=== PATIENT | female | born 1945 | race Two or more races ===

== ENCOUNTER 2017-10-19 08:41 | Day surgery (SDC) | payer MEDICARE, BC ==
[2017-10-14 16:06] VITALS: BMI 25.2
[~2017-10-19 08:41] MED LIST: LACTATED RINGERS 1,000 ML IV SCH; LIDOCAINE 1% 20 ML VIAL (10MG/ML) FOR IV START INTRADERMA PRN; MIDAZOLAM 2 MG/2 ML VIAL IV PRN
[2017-10-19 09:44] VITALS: TEMP 97.4
[2017-10-19] MEDS ORDERED: LIDOCAINE 1% 20 ML VIAL (10MG/ML) FOR IV START INTRADERMA ONE (09:54)
[2017-10-19] MEDS ORDERED: LIDOCAINE 1% INJ 10MG/ML (20 ML MDV) ONE (10:15)
[2017-10-19] MEDS ORDERED: PROPOFOL 10 MG/ML 20 ML VIAL IV ONE (10:15)
--- NOTE | 2017-10-19 10:33 | P.PCN ---
Date of Procedure: 10/19/17 Procedure(s) Performed: BRIEF HISTORY: Patient is a 72-year-old [place] white female, scheduled for an elective colonoscopy as a part of screening for colorectal neoplasia. PROCEDURE PERFORMED: Colonoscopy. PREOPERATIVE DIAGNOSIS: Screening For colon cancer. IV sedation per Anesthesia. PROCEDURE: After informed consent was obtained, the patient, was brought into the endoscopy unit. IV sedation was administered by Anesthesia under continuous monitoring. Digital rectal examination was normal. Initially the Olympus CF- 160 flexible video colonoscope was then inserted in the rectum, gradually advanced into the cecum without any difficulty. Careful examination was performed as the scope was gradually being withdrawn. Ileocecal valve and the appendiceal orifice were visualized and appeared normal. Prep was excellent. Mucosa of the cecum, ascending colon, transverse colon, descending colon, sigmoid colon, and rectum appeared normal. Scattered sigmoid diverticulosis. Retroflexion was performed in the rectum and no lesions were seen. The patient tolerated the procedure well. IMPRESSION: Normal-appearing colon from rectum to cecum with no evidence of colorectal neoplasia . Scattered sigmoid diverticulosis. RECOMMENDATIONS: Findings of this examination were discussed with the patient as well as a family. She was advised to have a repeat screening colonoscopy in 10 years.
[2017-10-19 10:47] VITALS: BP 110/63; PULSE 66; RESP 18
== END 2017-10-19 11:05 | disposition home or self-care (01) ==
LOC: ORWHC2ENDO 08:41
PROVIDERS: ATTEND Internal Medicine Gastroenterology
DX: Z12.11 Encounter for screening for malignant neoplasm of colon (principal); K57.30 Diverticulosis of large intestine without perforation or abscess without bleeding; K64.9 Unspecified hemorrhoids; F32.9 Major depressive disorder, single episode, unspecified; Z79.1 Long term (current) use of non-steroidal anti-inflammatories (NSAID); Z79.899 Other long term (current) drug therapy; Z88.6 Allergy status to analgesic agent
CPT/HCPCS: J2001; J2704; G0121; 45378

== ENCOUNTER → 2019-07-16 | Outpatient (CLI) | payer MEDICARE, BC | END | disposition home or self-care (01) | LOC: LABPAT 13:58 | PROVIDERS: ATTEND Orthopaedic Surgery | DX: Z01.812 Encounter for preprocedural laboratory examination (principal) | CPT/HCPCS: 87070 ==

== ENCOUNTER → 2020-06-14 | Outpatient (CLI) | payer MEDICARE, BC ==
--- NOTE | 2020-06-14 14:49 | MR ---
EXAMINATION TYPE: MR brain wo con DATE OF EXAM: 06/14/2020 COMPARISON: None HISTORY: Dizziness and giddiness, loss of balance Multiplanar multiecho imaging of the brain was performed without contrast. Ventricles have fairly normal size. There is no mass effect nor midline shift. There is mild cerebral atrophy. There is no evidence of intracranial hemorrhage. Diffusion images show no evidence of an ac [place] infarct. On the T2 and FLAIR images there is some mild increased diffuse signal in the white kirit er around the lateral ventricles. The brainstem is intact. Cerebellum is intact. Corpus callosum is intact. Sella turcica appears pavel l. There is no evidence of orbital mass. IMPRESSION: Cerebral atrophy. Mild white matter changes probably due to some mild microvascular ischemia. No acut e intracranial abnormality.
== END | disposition home or self-care (01) ==
LOC: RADMRIMAIN 13:12
PROVIDERS: ATTEND Internal Medicine
DX: G31.9 Degenerative disease of nervous system, unspecified (principal); R42 Dizziness and giddiness
CPT/HCPCS: 70551

== ENCOUNTER → 2021-01-27 | Outpatient (CLI) | payer MEDICARE, BC ==
--- NOTE | 2021-01-27 12:37 | XR ---
EXAMINATION TYPE: XR lumbar spine 2 or 3V DATE OF EXAM: 01/27/2021 CLINICAL HISTORY: Low back pain. TECHNIQUE: Frontal and lateral images of the lumbar spine are obtained. COMPARISON: None. FINDINGS: There are 5 lumbar type vertebral bodies identified. The lumbar spine shows satisfactory alignment without evidence of acute fracture or dislocation. Moderate disc space narrowing L5-S1 leve l otherwise vertebral body heights and disk space heights are within normal limits. Multiple punctate densities over the left midabdomen could reflect tiny left renal calculi, other etiologies not exclu ded. Consider CT follow-up. IMPRESSION: As above.
== END | disposition home or self-care (01) ==
LOC: RADXRMAIN 11:08
PROVIDERS: ATTEND Internal Medicine
DX: M54.5 Low back pain (principal)
CPT/HCPCS: 72100

== ENCOUNTER → 2021-03-06 | Outpatient (CLI) | payer MEDICARE, BC ==
--- NOTE | 2021-03-09 13:54 | MM ---
Reason for exam: screening (asymptomatic). Last mammogram was performed 1 year and 11 months ago. History: Patient is postmenopausal. Family history of breast cancer in mother at age 80. Benign cyst aspiration of the left breast, 1971. Physical Findings: A clinical breast exam by your physician is recommended on an annual basis and results should be correlated with mammographic findings. MG 3D Screening Mammo W/Cad Bilateral CC and MLO view(s) were taken. Prior study comparison: March 30, 2019, mammogram. There are scattered fibroglandular densities. There is chronic nodularity in the left breast. Right upper outer quadrant periareolar focal asymmetry is more defined, density persists on 3D images. Additional spot compression views recommended. ASSESSMENT: Incomplete: need additional imaging evaluation, BI-RAD 0 RECOMMENDATION: Special view mammogram of the right breast. (3D) If lesion persists on supplemental views, image directed ultrasound is recommended. [facility] will attempt to contact patient to return for supplemental views and ultrasound if indicated.
== END | disposition home or self-care (01) ==
LOC: RADMAMWWP 13:30
PROVIDERS: ATTEND Internal Medicine
DX: Z12.31 Encounter for screening mammogram for malignant neoplasm of breast (principal)
CPT/HCPCS: 77063; 77067

== ENCOUNTER → 2021-03-18 | Outpatient (CLI) | payer MEDICARE, BC ==
--- NOTE | 2021-03-18 12:11 | MM ---
Reason for exam: additional evaluation requested from abnormal screening. Last mammogram was performed less than 1 month ago. History: Patient is postmenopausal. Family history of breast cancer in mother at age 80. Benign cyst aspiration of the left breast, 1970. Physical Findings: Nurse did not find any significant physical abnormalities on exam. MG 3D Work Up W/Cad RT Spot compression CC and spot compression MLO view(s) were taken of the right breast. Prior study comparison: March 06, 2021, bilateral MG 3d screening mammo w/cad. March 30, 2019, mammogram. There are scattered fibroglandular densities. The density disperses on spot 3D CC. Becomes less defined on the other additional views. These results were verbally communicated with the patient and result sheet given to the patient on 03/18/21. ASSESSMENT: Incomplete: need additional imaging evaluation, BI-RAD 0 RECOMMENDATION: Ultrasound of the right breast. (upper outer quadrant periareolar)
--- NOTE | 2021-03-18 12:13 | USB ---
Reason for exam: additional evaluation requested from abnormal screening. History: Patient is postmenopausal. Family history of breast cancer in mother at age 80. Benign cyst aspiration of the left breast, 1970. US Breast Workup Limited RT Technologist: Kristel Jeffers Right limited breast ultrasound including focal area of concern, retroareolar and axilla demonstrates a dense tissue patch at 9 o'clock. Vague 4mm hypodensity within is too small to characterize. 6 month follow up recommended. Scanned 9-12 o'clock zone A. These results were verbally communicated with the patient and result sheet given to the patient on 03/18/21. ASSESSMENT: Probably benign, BI-RAD 3 RECOMMENDATION: Follow-up diagnostic mammogram and ultrasound of the right breast in 6 months.
== END | disposition home or self-care (01) ==
LOC: RADMAMWWP 10:20
PROVIDERS: ATTEND Internal Medicine
DX: R92.8 Other abnormal and inconclusive findings on diagnostic imaging of breast (principal)
CPT/HCPCS: 77065; 76642; G0279; 77061

== ENCOUNTER → 2021-05-11 | Outpatient (CLI) | payer MEDICARE, BC ==
--- NOTE | 2021-05-11 14:22 | BD ---
EXAMINATION TYPE: Axial Bone Density DATE OF EXAM: 05/11/2021 COMPARISON: NONE CLINICAL HISTORY: 76 YR OLD FEMALE.....ICD-10 CODE: M85.80 OSTEOPENIA Height: 62 Weight: 130 FRAX RISK QUESTIONS: NOTHING TO NOTE HERE RISK FACTORS HISTORY OF: Family History of Osteoporosis: YES, MOTHER, GRANDMOTHER WITH HIP FXS Postmenopausal woman: DANILOST AT AGE 53 YRS OLD Lost more than 2 inches in height since high school: YES Frequent falls: ELDERLY, USING CANE Hyperparathyroidism: NO Adrenal Insufficiency: NO MEDICATIONS: Osteoporosis Medications: BONIVA X5 YRS, PROLIA NOW 2 YRS Additional Medications: ATIVAN, REMERON, REFLUX MEDS, VIT D AND CALCIUM Additional History: ANXIETY, REFLUX EXAM MEASUREMENTS: Bone mineral densitometry was performed using the [email or web address] System. Bone mineral density as measured about the Lumbar spine is: ----- L1-L4(G/cm2): 1.078 T Score Values are as follows: ----- L1: -1.5 ----- L2: -1.6 ----- L3: -0.6 ----- L4: 0.2 ----- L1-L4: -0.8 Bone mineral density FIRST DEXA AT [facility] Bone mineral density about the R hip (g/cm2): 0.794 Bone mineral density about the L hip (g/cm2): 0.823 T Score values are as follows: -----R Neck: -1.4 -----L Neck: -1.5 -----R Total: -1.7 -----L Total: -1.5 Bone mineral density FIRST DEXA AT [facility] FRAX%S: THERE IS A 18.4% CHANCE FOR A MAJOR OSTEOPOROTIC FX AND A 9.4% FOR HIP.......PROBABILITY F OR FX IN 10 YRS TIME IMPRESSION: Osteopenia (T Score between -2.5 and -1). There is slightly increased risk of fracture and the patient may be considered for treatment. Re-Screen 2-5 years. NOTE: T-SCORE=SD OF THE YOUNG ADULT MEAN.
== END | disposition home or self-care (01) ==
LOC: RADBDWWP 12:30
PROVIDERS: ATTEND Internal Medicine
DX: M85.80 Other specified disorders of bone density and structure, unspecified site (principal)
CPT/HCPCS: 77080

== ENCOUNTER → 2021-09-17 | Outpatient (CLI) | payer MEDICARE, BC ==
--- NOTE | 2021-09-18 09:35 | MM ---
Reason for exam: follow-up at short interval from prior study. Last mammogram was performed 6 months ago. History: Patient is postmenopausal. Family history of breast cancer in mother at age 80. Benign cyst aspiration of the left breast, 1970. Physical Findings: A clinical breast exam by your physician is recommended on an annual basis and results should be correlated with mammographic findings. MG 3D Diag Mammo W/Cad JOSE DANIEL Bilateral CC and MLO view(s) were taken. Prior study comparison: March 18, 2021, right breast MG 3d work up w/cad RT. March 06, 2021, bilateral MG 3d screening mammo w/cad. There are scattered fibroglandular densities. There is chronic nodularity in the left breast. Upper outer quadrant subareolar focal asymmetry stable for 6 months. Results were given to the patient verbally at the time of the exam. ASSESSMENT: Incomplete: need additional imaging evaluation, BI-RAD 0 RECOMMENDATION: Ultrasound of the right breast. (upper outer quadrant zone A)
--- NOTE | 2021-09-18 09:38 | USB ---
Reason for exam: additional evaluation requested from abnormal screening. History: Patient is postmenopausal. Family history of breast cancer in mother at age 80. Benign cyst aspiration of the left breast, 1970. Physical Findings: A clinical breast exam by your physician is recommended on an annual basis and results should be correlated with mammographic findings. US Breast Limited RT Technologist: Kristel Jeffers Right limited breast ultrasound including focal area of concern, retroareolar and axilla demonstrates a dense patch seen at 9 o'clock, probable mammographic correlate. Additional short interval follow up recommended. Scanned 9-12 o'clock zone A. Results were given to the patient verbally at the time of the exam. ASSESSMENT: Probably benign, BI-RAD 3 RECOMMENDATION: Follow-up diagnostic mammogram of the right breast in 6 months.
== END | disposition home or self-care (01) ==
LOC: RADMAMWWP 14:07
PROVIDERS: ATTEND Internal Medicine
DX: R92.8 Other abnormal and inconclusive findings on diagnostic imaging of breast (principal)
CPT/HCPCS: 77066; 76642; G0279; 77062